=== PATIENT | female | born 1960 | race African-American/Black ===

== ENCOUNTER 2020-05-09 22:00 | Emergency (ER) | payer SELFPAY ==
[~2020-05-09] VITALS: Ht 162.6 cm; Wt 87.0 kg
[2020-05-10] MEDS ORDERED: FAMOTIDINE 20MG TABLET PO ONE (00:15)
[2020-05-10] MEDS ORDERED: ONDANSETRON 4MG ODT PO ONE (00:15)
[2020-05-10 00:53] LABS: BASOPHILS % 0.6 % (0.0-2.0); EOSINOPHILS % 0.3 % (0.0-5.0); HEMATOCRIT. 42.3 % (36.0-48.0); HEMOGLOBIN. 14.3 g/dL (12.0-16.0); LYMPHOCYTES % 26.1 % (20.0-50.0); MEAN CORPUSCULAR HEMOGLOBIN 31.8 pg (28.0-32.0); MEAN PLATELET VOLUME 8.2 fl (7.4-10.4); MONOCYTES % 6.2 % (2.0-8.0); NEUTROPHILS % 66.8 % (40.0-76.0); PLATELET 161 x1000/uL (130-400); RED CELL DISTRIBUTION WIDTH 14.4 % (11.6-14.6)
[2020-05-10 00:58] LABS: CHLORIDE 108 mEq/L (98-107)
[2020-05-10 01:01] LABS: PROTHROMBIN TIME 10.6 sec (9.6-11.0)
[2020-05-10] MEDS ORDERED: ONDA8TAB13 MT (02:02)
[2020-05-10] MEDS ORDERED: FAMO-134 PO (02:03)
[2020-05-10] MEDS ORDERED: SULF1TAB48 MT (02:04)
[2020-05-10 02:27] VITALS: BP 146/81
== END 2020-05-10 02:27 | disposition home or self-care (01) ==
LOC: ER 22:00
DX: A05.9 Bacterial foodborne intoxication, unspecified (principal); R03.0 Elevated blood-pressure reading, without diagnosis of hypertension
CPT/HCPCS: 36415; 76705; 80053; 83690; 85025; 85610; 99284; Q0162